=== PATIENT | male | born 1960 | race Caucasian/White ===

== ENCOUNTER 2016-09-26 15:58 | Emergency (ER) | payer OTHER ==
[~2016-09-26] VITALS: Ht 182.9 cm; Wt 91.4 kg
[~2016-09-26 15:58] MED LIST: ANALGESIC325 M1 PO; ASPIR-LOW81 MG PO; ASPIRIN325 MG PO; CALCIUM CARBON600 M2 PO; CALCIUM600 M1 PO; CALTRATE 600600 MG PO; CELLCEPT500 MG PO; COLACE100 MG PO; DAILY VALUE1 EACH PO; DELTASONE DOSEPA5 MG; DOCUSATE SODIU100 MG PO; DOXAZOSIN MESYLA1 MG PO; DURAGESIC12 MICROGR; DURAGESIC50 MCG TD; DURAGESIC75 MCG TD; FENTANYL1 EAC2 TD; HIGH POTENCY C600 MG PO; MAG-OX400 M1 PO; MAG-OXIDE400 MG PO; MAGNESIUM400 MG PO; METOPROLOL SUCC25 MG PO; MILLIPRED DP5 MG PO; MULTIVITAMIN; MULTIVITAMIN1 EAC1; MYCOPHENOLATE500 MG PO; OSCAL, OYSTER500 MG PO; OXYCODONE HCL15 MG PO; OXYCODONE HCL5 MG PO; OXYCODONE15 MG PO; PREDNISONE5 MG PO; PROGRAF0.5 MG; PROGRAF1 MG PO; RAYOS5 MG PO; ROCALTROL0.25 MCG PO; Rocaltrol PO; SIMVASTATIN10 M1 PO; SIMVASTATIN10 MG PO; TACROLIMUS ANHYD1 MG PO; TOPROL XL25 MG PO; Tums,OsCal PO; VITAMIN D-3 401 EACH PO; XANAX1 MG PO; XANAX2 MG PO; ZOCOR10 MG PO
[2016-09-26] MEDS ORDERED: VALIUM2 MG PO (19:22)
[2016-09-26] MEDS ORDERED: NAPROXEN500 MG PO (19:24)
[2016-09-26 19:37] VITALS: BP 138/83
== END 2016-09-26 19:38 | disposition home or self-care (01) ==
LOC: EME 15:58
DX: S16.1XXA Strain of muscle, fascia and tendon at neck level, initial encounter (principal); W51.XXXA Accidental striking against or bumped into by another person, initial encounter; G89.29 Other chronic pain; Z79.891 Long term (current) use of opiate analgesic; Z79.82 Long term (current) use of aspirin; Z79.52 Long term (current) use of systemic steroids
CPT/HCPCS: 72125; 99281; 99283; J1885; J3360